=== PATIENT | female | born 1930 | race Asian ===

== ENCOUNTER 2017-08-08 22:01 | Inpatient (IN) | payer MEDICARE, MEDICAID ==
[~2017-08-08] VITALS: Ht 162.6 cm; Wt 45.4 kg
[2017-08-08] MEDS ORDERED: PREG75CA PO (22:46)
[2017-08-08] MEDS ORDERED: PANT40TA4 PO (22:46)
[2017-08-08] MEDS ORDERED: AMYL1CAP58 PO (22:46)
[2017-08-08] MEDS ORDERED: LOSA25TA13 PO (22:46)
[2017-08-08] MEDS ORDERED: DOCU-141 PO (22:46)
[2017-08-08] MEDS ORDERED: DEXA4TAB PO (22:46)
[2017-08-08] MEDS ORDERED: [UNRECOGNIZED DRUG - REMARK] (22:46)
[2017-08-08] MEDS ORDERED: POMA2CAP PO (22:46)
[2017-08-08] MEDS ORDERED: [UNRECOGNIZED DRUG - CODE] PO (22:46)
--- NOTE | 2017-08-08 22:50 | NUR ---
DR JOSE MUHAMMAD MD AT BEDSIDE FOR MSE.
[2017-08-08] MEDS ORDERED: ONDANSETRON 4 MG/2 ML VIAL IV ONE (23:00)
[2017-08-08] MEDS ORDERED: ONDANSETRON 4 MG/2 ML VIAL ONE (23:01)
--- NOTE | 2017-08-08 23:07 | NUR ---
PT TAKEN TO RADIOLOGY FOR CT. NO ACUTE DISTRESS NOTED.
[2017-08-08] MEDS ORDERED: MORPHINE SULFATE 2 MG/1 ML DISP.SYRIN IV ONE (23:45)
[2017-08-08 23:57] LABS: BASOPHILS % (AUTO) 0.6 % (0.0-2.0); EOSINOPHILS % (AUTO) 0.8 % (0.0-7.0); HEMATOCRIT 29.3 % (31.2-41.9); HEMOGLOBIN 10.1 g/dL (10.9-14.3); LYMPHOCYTES % (AUTO) 22.8 % (20.5-51.5); MEAN CORPUSCULAR HEMOGLOBIN 34.1 uug (24.7-32.8); MEAN CORPUSCULAR HGB CONC 34 g/dL (32.3-35.6); MEAN CORPUSCULAR VOLUME 99.1 fL (75.5-95.3); MONOCYTES # (AUTO) 0.7 K/uL (2.0-10.0); MONOCYTES % (AUTO) 16.7 % (0.0-11.0); NEUTROPHILS # (AUTO) 2.5 K/uL (1.8-8.9); NEUTROPHILS % (AUTO) 59.1 % (38.5-71.5); PLATELET COUNT (AUTO) 265 K/uL (179-408); RED BLOOD CELL COUNT(AUTO) 2.96 MIL/uL (3.63-4.92); WHITE BLOOD COUNT (AUTO) 4.3 K/uL (3.8-11.8)
[2017-08-09 00:07] LABS: CARBON DIOXIDE 24 mmol/L (21-32); CHLORIDE 102 mmol/L (98-107); CREATININE 0.8 mg/dL (0.6-1.3); GLUCOSE 110 mg/dL (74-106); POTASSIUM 3.5 mmol/L (3.5-5.1); UREA NITROGEN, BLOOD 13 mg/dL (7-18)
[2017-08-09 00:13] LABS: ALANINE AMINOTRANSFERASE 19 U/L (14-59); ALKALINE PHOSPHATASE 53 U/L (50-136); ASPARTATE AMINOTRANSFERASE 16 U/L (15-37); BILIRUBIN,DIRECT 0.1 mg/dL (0.0-0.2); BILIRUBIN,TOTAL 0.3 mg/dL (0.2-1.0)
[2017-08-09] MEDS ORDERED: MORPHINE SULFATE 2 MG/1 ML DISP.SYRIN ONE (00:29)
--- NOTE | 2017-08-09 00:40 | NUR ---
RADIOLOGY AT BEDSIDE FOR XRAY.
[2017-08-09 01:56] LABS: LYMPHOCYTES % (MANUAL) 22 % (20-40); MONOCYTES % (MANUAL) 17 % (2-10); NEUTROPHILS % (MANUAL) 61 % (42-75)
[2017-08-09] MEDS ORDERED: SWABABLE VALVE TRANSFER SET EA MC ONE (02:27)
[2017-08-09] MEDS ORDERED: IOHEXOL 300MG/ML 100 ML INFUS..BTL ONE (02:28)
[2017-08-09] MEDS ORDERED: IV NORMAL SALINE 100 ML ONE (02:28)
--- NOTE | 2017-08-09 02:55 | NUR ---
PT TAKEN TO RADIOLOGY FOR CT. NO DISTRESS NOTED.
[2017-08-09] MEDS ORDERED: IV NS 1000 ML 1,000 ML IV ONE (06:30)
[2017-08-09] MEDS ORDERED: ACETAMINOPHEN ES 500 MG TABLET ONE (06:40)
[2017-08-09] MEDS ORDERED: ACETAMINOPHEN ES 500 MG TABLET PO ONE (06:45)
--- NOTE | 2017-08-09 07:50 | NUR ---
TEXTED FOR MRI C SPINE APPROVAL.
--- NOTE | 2017-08-09 07:51 | NUR ---
DIRECTOR OF TEACHER EDUCATION HRS M- F 8.30 AM TILL 5PM ,TILE GRINDER FROM 5 PM TILL 10PM.
--- NOTE | 2017-08-09 07:52 | NUR ---
MRI APPROVED BY DR. SALINAS.
--- NOTE | 2017-08-09 07:57 | NUR ---
TOLD ER NURSE JOSE TO ARRANGE THE TRANSPORTATION TO [facility] AND CALL ME FOR THE ETA FOR PICKUP.
--- NOTE | 2017-08-09 08:00 | NUR ---
CLARISSE: [facility] trip# [id number].
--- NOTE | 2017-08-09 08:00 | NUR ---
Received telephone call from Manas at [facility] who stated the patient can be transfered for MRI. Called [facility] for transport, eta 45 mins. Called Manas back ) with eta.
[2017-08-09] MEDS ORDERED: HYDROCODONE/APAP 5-325MG TABLET PO STA (08:51)
[2017-08-09] MEDS ORDERED: HYDROCODONE/APAP 5-325MG TABLET ONE (08:55)
--- NOTE | 2017-08-09 08:55 | NUR ---
BEDPAN PLACED FOR PT, PERNIEAL HYGIENE PROVIDED FOR PT.
--- NOTE | 2017-08-09 09:08 | NUR ---
[facility] AT BEDSIDE TO TRANSFER THE PT TO [facility] AND AFTER TO TRANSFER THE PT TO FLOOR ROOM 212.
--- NOTE | 2017-08-09 09:17 | NUR ---
PT LEFT ER IN STABLE CONDITION, PT FAMILY MEMBERS WITH PT.
[2017-08-09] MEDS ORDERED: ONDANSETRON 4 MG/2 ML VIAL IV PRN (10:15)
[2017-08-09] MEDS ORDERED: ACETAMINOPHEN 325 MG TABLET PO PRN (10:15)
[2017-08-09] MEDS ORDERED: Z GUARD REMEDY PASTE 57 GM TUBE TOP PRN (10:15)
[2017-08-09] MEDS ORDERED: ZOLPIDEM 5 MG TABLET PO PRN (10:15)
[2017-08-09] MEDS ORDERED: MAGNESIUM HYDROXIDE 30 ML LIQUID UDC PO PRN (10:15)
[2017-08-09] MEDS: LOSARTAN POTASSIUM 25 MG TABLET PO SCH (10:33)
[2017-08-09] MEDS ORDERED: DEXAMETHASONE 4 MG TABLET PO SCH (10:34)
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
--- NOTE | 2017-08-09 11:30 | NUR ---
HEAD TO TOE ASSESSMENT PATIENT DENIES NUMBNESS OR TINGLING SENSATION OF BUE AND BLE, NO SS OF RESPIRATORY DISTRESS. WILL CONTINUE TO MONITOR
[2017-08-09] MEDS ORDERED: DORZ10DR13 EACHEYE (11:31)
[2017-08-09] MEDS ORDERED: CYCL30DR EACHEYE (11:32)
[2017-08-09] MEDS ORDERED: [UNRECOGNIZED DRUG - OTHER] EACHEYE (11:35)
[2017-08-09] MEDS ORDERED: LIPA1CAP15 PO (11:36)
[2017-08-09] MEDS ORDERED: AZIT250T13 PO (11:41)
[2017-08-09] MEDS ORDERED: MOXI400T PO (11:42)
[2017-08-09 11:48] VITALS: BP 127/49
[2017-08-09] MEDS: HYDROCODONE/APAP 5-325MG TABLET PO PRN (12:01)
--- NOTE | 2017-08-09 12:04 | NUR ---
HOA NOT GIVEN PATIENT TOOK OWN MEDS BEFORE COMING TO HOSPITAL
[2017-08-09] MEDS: LIPASE/PROTEASE/AMYLASE 4200 UNITS CAPSULE.DR PO SCH ×2 (13:00→17:07)
[2017-08-09] MEDS: IV D5 1/2 NS 1000 ML 1,000 ML IV PRN (13:52)
--- NOTE | 2017-08-09 14:54 | NUR ---
RESTING COMFORTABLY NO SS OF DISTRESS, NO NUMBNESS. WILL CONTINUE PAIN MANAGEMENT AND JOCY STATUS
[2017-08-09 15:32] VITALS: BP 128/60
[2017-08-09] MEDS ORDERED: Medication Not On Formulary EA (Pregabalin (Lyrica) 75 MG) PO SCH (17:00)
[2017-08-09] MEDS ORDERED: PREGABALIN 25 MG CAPSULE PO SCH (17:00)
[2017-08-09] MEDS ORDERED: Medication Not On Formulary EA (Amylase/Lipase/Protease (Creon Dr 24,000 Units Capsule) PO SCH (17:00)
[2017-08-09] MEDS ORDERED: ASCORBIC ACID 1000 MG PO SCH (17:00)
[2017-08-09] MEDS ORDERED: DOCUSATE SODIUM 100 MG CAPSULE PO SCH (17:00)
[2017-08-09] MEDS: DOCUSATE SODIUM 250 MG CAPSULE PO SCH (17:05)
[2017-08-09] MEDS: ASCORBIC ACID 500 MG TABLET PO SCH (17:05)
[2017-08-09 19:20] VITALS: BP 115/44
[2017-08-09] MEDS ORDERED: MORPHINE SULFATE 4 MG/1 ML DISP.SYRIN IV PRN (19:30)
[2017-08-09 20:14] VITALS: BP 131/71
[2017-08-09 20:16] VITALS: BP 115/44
[2017-08-09] MEDS ORDERED: PANTOPRAZOLE SODIUM 40 MG TABLET.DR PO SCH (21:00)
[2017-08-09] MEDS: PREGABALIN 25 MG CAPSULE PO SCH (21:30)
[2017-08-09] MEDS: PANTOPRAZOLE SODIUM 40 MG TABLET.DR PO SCH (21:53)
[2017-08-09 23:40] VITALS: BP 106/50
[2017-08-10] MEDS: IV D5 1/2 NS 1000 ML 1,000 ML IV PRN ×2 (03:00→16:11)
[2017-08-10 03:20] VITALS: BP 130/47
--- NOTE | 2017-08-10 06:00 | NUR ---
NO NEURO CHANGES OVERNIGHT.SINUS KELSEY TO SINUS RHYTHM
--- NOTE | 2017-08-10 06:16 | NUR ---
PT ALERT,ORIENTED,REMAINS BEDREST, SPINE PRECAUTION WITH CERVICAL COLLAR, USES BEDPAN AND VOIDED WELL, NO BM, CONTINUE WITH IV FLUIDS, GIVEN MORPHINE X1 LAST NIGHT AND SLEPT WELL,KEPT ON OXYGEN TO KEEP >92%, VSS,AFEBRILE ,SINUS RHYTHM ON MONITOR.
[2017-08-10 06:37] LABS: CARBON DIOXIDE 29 mmol/L (21-32); CHLORIDE 105 mmol/L (98-107); CREATININE 0.7 mg/dL (0.6-1.3); GLUCOSE 105 mg/dL (74-106); MAGNESIUM 2.2 mg/dL (1.8-2.4); PHOSPHOROUS 3.5 mg/dL (2.5-4.9); UREA NITROGEN, BLOOD 8 mg/dL (7-18)
[2017-08-10 06:42] LABS: BASOPHILS % (AUTO) 0.7 % (0.0-2.0); HEMATOCRIT 30.7 % (31.2-41.9); HEMOGLOBIN 10.7 g/dL (10.9-14.3); LYMPHOCYTES # (AUTO) 0.9 K/uL (20.0-40.0); MEAN CORPUSCULAR HEMOGLOBIN 34.7 uug (24.7-32.8); MEAN CORPUSCULAR HGB CONC 35 g/dL (32.3-35.6); MEAN CORPUSCULAR VOLUME 99.5 fL (75.5-95.3); MONOCYTES # (AUTO) 0.6 K/uL (2.0-10.0); MONOCYTES % (AUTO) 17.4 % (0.0-11.0); NEUTROPHILS % (AUTO) 54.9 % (38.5-71.5); PLATELET COUNT (AUTO) 248 K/uL (179-408); RED BLOOD CELL COUNT(AUTO) 3.09 MIL/uL (3.63-4.92); WHITE BLOOD COUNT (AUTO) 3.6 K/uL (3.8-11.8)
[2017-08-10] MEDS ORDERED: PANTOPRAZOLE SODIUM 40 MG TABLET.DR PO SCH ×2 (07:00)
[2017-08-10 07:30] VITALS: BP 136/55
--- NOTE | 2017-08-10 07:30 | NUR ---
NOTED NEUROLOGY CONSULT NO NEW ORDERS, RECOMMEND FURTHER MGT PER [facility]THO. PT REMAINS STABLE. SR ON MONITOR DENIES TINGLING, NUMBNESS ON ALL EXTREMITIES EXCEPT FOR VERY MILD WEAKNESS, NO SS OF RESPIRATORY DISTRESS EXCEPT ON SLEEPING PER AMBULANCE OFFICER HR GOES DOWN TO 58/MIN. WILL CONTINUE TO MONITOR JOCY STATUS
--- NOTE | 2017-08-10 07:51 | NUR ---
AWAKE ALERT AND ORIENTED X3 NO SS OF ACUTE PAIN OR DISTRESS. NEURO ASSESSMENT REMAINS STABLE SR/SB ON MONITOR
[2017-08-10 08:00] VITALS: BP 136/55
[2017-08-10] MEDS ORDERED: LIPASE/PROTEASE/AMYLASE 4200 UNITS CAPSULE.DR PO SCH (08:00)
[2017-08-10] MEDS: LIPASE/PROTEASE/AMYLASE 4200 UNITS CAPSULE.DR PO SCH ×3 (08:17→17:21)
[2017-08-10] MEDS: PREGABALIN 25 MG CAPSULE PO SCH (08:18)
[2017-08-10] MEDS: DOCUSATE SODIUM 250 MG CAPSULE PO SCH ×2 (08:18→16:21)
[2017-08-10] MEDS: LOSARTAN POTASSIUM 25 MG TABLET PO SCH (08:18)
[2017-08-10] MEDS: ASCORBIC ACID 500 MG TABLET PO SCH ×2 (08:18→16:22)
[2017-08-10] MEDS: HYDROCODONE/APAP 5-325MG TABLET PO PRN (08:21)
[2017-08-10] MEDS ORDERED: MOXIFLOXACIN HCL PO SCH (09:00)
[2017-08-10] MEDS ORDERED: Medication Not On Formulary EA (Lipase/Protease/Amylase (Creon Dr 36,000 Units Capsule) PO SCH (09:00)
[2017-08-10] MEDS ORDERED: POMALIDOMIDE 2 MG PO SCH (09:00)
[2017-08-10] MEDS ORDERED: AZITHROMYCIN 250 MG TABLET PO SCH (09:00)
[2017-08-10] MEDS ORDERED: DORZOLAMIDE/TIMOLOL OPHT DROP 10 ML BOTTLE EACHEYE SCH ×2 (09:00)
--- NOTE | 2017-08-10 09:01 | NUR ---
DR VILLALBA IN SAID OK TO SIT PT UP ON CHAIR BY NURSING TOLERATED, CONTINUE PAIN MANAGEMENT ORDERED. PATIENT REMAINS STABLE . STATUS CHANGED TO MED/SURG
[2017-08-10 09:32] LABS: BAND % (MANUAL) 2 % (0-10); BASOPHILS % (MANUAL) 1 % (0-2); EOSINOPHILS % (MANUAL) 2 % (0-8); LYMPHOCYTES % (MANUAL) 26 % (20-40); MONOCYTES % (MANUAL) 13 % (2-10); NEUTROPHILS % (MANUAL) 56 % (42-75)
[2017-08-10 11:22] VITALS: BP 124/48
[2017-08-10] MEDS ORDERED: TIMO5DRO18 EACHEYE (11:58)
[2017-08-10] MEDS ORDERED: LATA2.5D2 EACHEYE (11:58)
[2017-08-10] MEDS ORDERED: BRIM10DR6 EACHEYE (11:58)
[2017-08-10] MEDS ORDERED: PATIENT MAY USE OWN MED- MD OK PO SCH (12:15)
[2017-08-10 15:28] VITALS: BP 118/55
--- NOTE | 2017-08-10 16:30 | NUR ---
RESTING WELL IN BED NO PAIN OR ACUTE DISTRESS FAMILY AT BEDSIDE AND CALL LIGHT IN REACH ,CONTINUE IVF AND CERVICAL COLLAR INPLACE KEEP IT AT ALL TIME
[2017-08-10] MEDS: [UNRECOGNIZED DRUG - OTHER] EACHEYE SCH (17:15)
--- NOTE | 2017-08-10 17:30 | NUR ---
STABLE HEMODYNAMIC STATUS ,PAIN UNDER CONTROL NO ACUTE DISTRESS AND CALL LIGHT WITHIN REACH FAMILY AT BEDSIDE AT ALL TIME
--- NOTE | 2017-08-10 19:30 | NUR ---
Pt noted to be AAO x 3 and verbally responsive to verbal and tactile stimuli. Cervical collar in place. No s/s of distress noted at this time. No complaints of pain. Bed in low, locked position with bed alarm on. Call light within reach. Will continue to monitor closely.
[2017-08-10 20:00] VITALS: BP 102/44
[2017-08-10] MEDS: TIMOLOL MALEATE 0.5% OPHT DROP 5 ML BOTTLE EACHEYE SCH (20:44)
[2017-08-10] MEDS: LATANOPROST OPHT DROP 2.5 ML BOTTLE EACHEYE SCH (20:44)
[2017-08-10] MEDS: BRIMONIDINE 0.2% OPHT DROP 10 ML BOTTLE EACHEYE SCH (20:45)
[2017-08-10] MEDS: PANTOPRAZOLE SODIUM 40 MG TABLET.DR PO SCH (20:45)
[2017-08-10] MEDS: PREGABALIN 50 MG CAPSULE PO SCH (20:45)
[2017-08-10] MEDS: MORPHINE SULFATE 2 MG/1 ML DISP.SYRIN IV PRN (22:04)
--- NOTE | 2017-08-11 05:20 | NUR ---
No acute distress throughout the night. Amparo care provided. Remains easily arousable to verbal and tactile stimuli. Cervical collar in place. Bed in low, lock position with bed alarm on. Call light within reach. Will endorse accordingly.
[2017-08-11] MEDS: IV D5 1/2 NS 1000 ML 1,000 ML IV PRN (05:26)
[2017-08-11 06:00] VITALS: BP 110/48
--- NOTE | 2017-08-11 07:20 | NUR ---
Received report from fig washer nurse, patient in bed awake, no distress noted at this time, bed in low position, side rails up x2, bed alarm on. Tanana J collar on.
[2017-08-11] MEDS: LIPASE/PROTEASE/AMYLASE 4200 UNITS CAPSULE.DR PO SCH ×3 (08:28→18:36)
[2017-08-11] MEDS: [UNRECOGNIZED DRUG - OTHER] EACHEYE SCH ×2 (08:29→16:07)
[2017-08-11] MEDS: ASCORBIC ACID 500 MG TABLET PO SCH ×2 (08:29→16:05)
[2017-08-11] MEDS: LOSARTAN POTASSIUM 25 MG TABLET PO SCH (08:30)
[2017-08-11] MEDS: PREGABALIN 50 MG CAPSULE PO SCH ×2 (08:30→20:09)
[2017-08-11] MEDS: DOCUSATE SODIUM 250 MG CAPSULE PO SCH ×2 (08:30→16:06)
[2017-08-11] MEDS: MORPHINE SULFATE 2 MG/1 ML DISP.SYRIN IV PRN (08:31)
[2017-08-11] MEDS: TIMOLOL MALEATE 0.5% OPHT DROP 5 ML BOTTLE EACHEYE SCH ×2 (08:35→20:12)
[2017-08-11] MEDS: BRIMONIDINE 0.2% OPHT DROP 10 ML BOTTLE EACHEYE SCH ×2 (08:36→20:12)
[2017-08-11] MEDS: HYDROCODONE/APAP 5-325MG TABLET PO PRN ×2 (08:38→20:10)
--- NOTE | 2017-08-11 09:30 | NUR ---
Patient reports pain in pelvic area, and difficulty urinating. Bladder scan performed, no residual urine in bladder. Reported to Dr. Cowart and orders for a urinalysis completed.
--- NOTE | 2017-08-11 10:00 | NUR ---
Patient up with physical therapy. Tolerated well.
[2017-08-11 11:34] VITALS: BP 107/47
[2017-08-11 11:47] LABS: *BILIRUBIN,URIN NEGATIVE (NEGATIVE); *BLOOD, URINE NEGATIVE (NEGATIVE); *CLARITY,URINE CLEAR (CLEAR); *COLOR,URINE YELLOW (YELLOW); *KETONES,URINE NEGATIVE (NEGATIVE); *PROTEIN,URINE NEGATIVE (NEGATIVE); *UROBILINOGEN,URINE 0.2 E.U./dl (NORMAL); LEUKOCYTE ESTERASE ,URINE NEGATIVE (NEGATIVE); NITRITE, URINE NEGATIVE (NEGATIVE); UGLUCOSE NEGATIVE (NEGATIVE)
[2017-08-11 12:26] LABS: BACTERIA,URINE NONE SEEN /HPF (NONE SEEN); MUCUS,URINE FEW /LPF (0-FEW); SQUAMOUS EPITHELIAL CELL,UR FEW /HPF (NONE SEEN); WBC,URINE 0-3 /HPF (0-3)
[2017-08-11 15:24] VITALS: BP 107/49
[2017-08-11] MEDS: MOXIFLOXACIN 400 MG PO SCH (16:05)
[2017-08-11] MEDS: [UNRECOGNIZED DRUG - OTHER] PO SCH (16:05)
[2017-08-11] MEDS: AZITHROMYCIN 250 MG TABLET PO SCH (16:05)
--- NOTE | 2017-08-11 19:15 | NUR ---
PATIENT HAS BEEN COOPERATIVE WITH CARE, NO DISTRESS NOTED AT THIS TIME, BED IN LOW POSITION, SIDE RAILS UPX2, FAMILY AT BEDSIDE.
--- NOTE | 2017-08-11 19:30 | NUR ---
NSG: pt received a/o x 4, sitting on the chair. lungs sound clear to auscultate. Denies pain at this time. cervical collar in place. ambulatory with assistance. daughter at the bedside. cont to monitor.
[2017-08-11 19:52] VITALS: BP 110/47
[2017-08-11] MEDS: PANTOPRAZOLE SODIUM 40 MG TABLET.DR PO SCH (20:09)
[2017-08-11] MEDS: LATANOPROST OPHT DROP 2.5 ML BOTTLE EACHEYE SCH (20:13)
[2017-08-12 03:36] VITALS: BP 138/50
--- NOTE | 2017-08-12 05:37 | NUR ---
NSG: PT AWAKE. NO ACUTE DISTRESS NOTED. CERVICAL COLLAR IN PLACE. BRP WITH MIN ASSISTANCE. CONT WITH TREATMENT PLAN.
--- NOTE | 2017-08-12 06:03 | NUR ---
nsg: iv infiltrated. refused iv reinserted.
--- NOTE | 2017-08-12 07:29 | NUR ---
patient resting comfortably in bed at this time. patient does not have IV-access and patient refuses to have new IV-access started. will notify MD. stable condition at this time. cervical collar on. bed in locked/low position, side rails up x2, bed alarm on, call light within reach.
[2017-08-12] MEDS: PREGABALIN 50 MG CAPSULE PO SCH (09:10)
[2017-08-12] MEDS: DOCUSATE SODIUM 250 MG CAPSULE PO SCH ×2 (09:10→17:00)
[2017-08-12] MEDS: LOSARTAN POTASSIUM 25 MG TABLET PO SCH (09:11)
[2017-08-12] MEDS: ASCORBIC ACID 500 MG TABLET PO SCH ×2 (09:11→17:05)
[2017-08-12] MEDS: LIPASE/PROTEASE/AMYLASE 4200 UNITS CAPSULE.DR PO SCH ×3 (09:12→18:00)
[2017-08-12] MEDS: TIMOLOL MALEATE 0.5% OPHT DROP 5 ML BOTTLE EACHEYE SCH (09:15)
[2017-08-12] MEDS: BRIMONIDINE 0.2% OPHT DROP 10 ML BOTTLE EACHEYE SCH (09:15)
[2017-08-12] MEDS: [UNRECOGNIZED DRUG - OTHER] EACHEYE SCH ×2 (09:18→17:37)
[2017-08-12 11:30] VITALS: BP 103/58
--- NOTE | 2017-08-12 11:57 | NUR ---
patient continues to refuse new IV-access to be started.
[2017-08-12 11:58] LABS: BASOPHILS % (AUTO) 0.8 % (0.0-2.0); EOSINOPHILS # (AUTO) 0.1 K/uL (0.0-0.7); EOSINOPHILS % (AUTO) 1.8 % (0.0-7.0); HEMATOCRIT 31.8 % (31.2-41.9); HEMOGLOBIN 11.1 g/dL (10.9-14.3); LYMPHOCYTES # (AUTO) 0.7 K/uL (20.0-40.0); LYMPHOCYTES % (AUTO) 18.3 % (20.5-51.5); MEAN CORPUSCULAR HEMOGLOBIN 34.6 uug (24.7-32.8); MEAN CORPUSCULAR HGB CONC 35 g/dL (32.3-35.6); MEAN CORPUSCULAR VOLUME 98.6 fL (75.5-95.3); MONOCYTES # (AUTO) 0.4 K/uL (2.0-10.0); NEUTROPHILS # (AUTO) 2.7 K/uL (1.8-8.9); NEUTROPHILS % (AUTO) 68.1 % (38.5-71.5); PLATELET COUNT (AUTO) 234 K/uL (179-408); RED BLOOD CELL COUNT(AUTO) 3.22 MIL/uL (3.63-4.92)
[2017-08-12 12:04] LABS: CARBON DIOXIDE 26 mmol/L (21-32); CHLORIDE 99 mmol/L (98-107); CREATININE 0.8 mg/dL (0.6-1.3); GLUCOSE 102 mg/dL (74-106); UREA NITROGEN, BLOOD 7 mg/dL (7-18)
[2017-08-12 12:17] LABS: THYROID STIMULATING HORMONE 2.133 mIU/mL (0.358-3.740)
[2017-08-12 12:22] LABS: IRON, SERUM 57 ug/dL (50-175)
[2017-08-12 12:35] LABS: ALANINE AMINOTRANSFERASE 16 U/L (14-59); ALKALINE PHOSPHATASE 48 U/L (50-136); ASPARTATE AMINOTRANSFERASE 13 U/L (15-37); BILIRUBIN,TOTAL 0.2 mg/dL (0.2-1.0); CHOLESTEROL 155 mg/dL (<200); HDL CHOLESTEROL 91 mg/dL (40-60); MAGNESIUM 1.9 mg/dL (1.8-2.4); PHOSPHOROUS 3.2 mg/dL (2.5-4.9); TOTAL PROTEIN, SERUM 7.2 g/dL (6.4-8.2); TRIGLYCERIDES 81 MG/DL (30-150)
[2017-08-12 15:40] VITALS: BP 140/45
[2017-08-12] MEDS ORDERED: PREG50CA PO (16:22)
[2017-08-12] MEDS ORDERED: HYDR-3326 PO (16:22)
[2017-08-12] MEDS ORDERED: MAGN400O6 PO (16:22)
[2017-08-12] MEDS ORDERED: ACET325T53 PO (16:22)
[2017-08-12] MEDS ORDERED: AZIT500T PO (16:29)
[2017-08-12] MEDS ORDERED: ACID1TAB4 PO (16:29)
[2017-08-12] MEDS ORDERED: MOXI400T PO (16:29)
[2017-08-12] MEDS: AZITHROMYCIN 250 MG TABLET PO SCH (17:05)
[2017-08-12] MEDS: HYDROCODONE/APAP 5-325MG TABLET PO PRN (17:06)
[2017-08-12] MEDS: MOXIFLOXACIN 400 MG PO SCH (17:15)
[2017-08-12] MEDS: [UNRECOGNIZED DRUG - OTHER] PO SCH (17:15)
--- NOTE | 2017-08-12 19:06 | NUR ---
patient discharged at this time to [facility] in stable condition, no s/s of distress. vital signs stable. discharge instructions/education provided to patient. discharge packet completed, signed by nurse/patient and copy made for patient. report given to missy FLORES at [facility]. ID-band taken off. Patient leaving with NO IV-access, which is not needed at facility. report given to ambulance. patient leaving in safe condition.
== END 2017-08-12 19:24 | DRG 552 ==
LOC: ER 22:03 → DOU 08-09 07:59 → TELE-TD 08-09 10:08 → MED 08-10 09:01
PROVIDERS: ADMIT Nurse Practitioner Acute Care; ATTEND Nurse Practitioner Acute Care
DX: S12.101A Unspecified nondisplaced fracture of second cervical vertebra, initial encounter for closed fracture (principal); E44.0 Moderate protein-calorie malnutrition; C90.00 Multiple myeloma not having achieved remission; K86.1 Other chronic pancreatitis; D68.59 Other primary thrombophilia; Z68.1 Body mass index [BMI] 19.9 or less, adult; K21.9 Gastro-esophageal reflux disease without esophagitis; D63.8 Anemia in other chronic diseases classified elsewhere; K59.09 Other constipation; I10 Essential (primary) hypertension; H40.9 Unspecified glaucoma; R53.1 Weakness; G31.9 Degenerative disease of nervous system, unspecified; M85.80 Other specified disorders of bone density and structure, unspecified site; D53.9 Nutritional anemia, unspecified; V89.2XXA Person injured in unspecified motor-vehicle accident, traffic, initial encounter; Z79.2 Long term (current) use of antibiotics; Y93.9 Activity, unspecified; Y99.9 Unspecified external cause status; Y92.410 Unspecified street and highway as the place of occurrence of the external cause
CPT/HCPCS: 36415; 70030-TC; 70450; 71045; 72125; 72141; 83550; 83735; 84100; 84443; 85025; 85730; 93005; 97116; 97165; 97530; A4663; A9150; J2270; J2405; J3490; J8540; Q0144; Q9967